=== PATIENT | female | born 1945 | race Caucasian/White ===

== ENCOUNTER → 2017-04-11 | Outpatient (CLI) | payer MEDICARE ==
--- NOTE | 2017-04-14 06:47 | MM ---
Reason for exam: additional evaluation requested from prior study. Last mammogram was performed 6 months ago. History: Patient is postmenopausal. Family history of premenopausal breast cancer in sister at age 35 and premenopausal breast cancer in daughter at age 47. 4 excisional biopsies of the right breast. Physical Findings: Nurse did not find any significant physical abnormalities on exam. MG 3D Diag Mammo W/Cad JOB Bilateral CC and MLO view(s) were taken. LM, spot compression CC, and spot compression MLO view(s) were taken of the left breast. Prior study comparison: September 26, 2016, bilateral MG 3d work up w/cad JOB. September 20, 2016, bilateral MG 3d screening mammo w/cad. Finding: There is an equal density (isodense), indistinct round mass in the upper outer quadrant, posterior position of the left breast which compresses normally, probably benign. New finding since September 26, 2016 and September 20, 2016. These results were verbally communicated with the patient and result sheet given to the patient on 04/11/17. ASSESSMENT: Probably benign, BI-RAD 3 RECOMMENDATION: Follow-up diagnostic mammogram of the left breast in 6 months.
== END | disposition home or self-care (01) ==
LOC: RADMAMWWP 13:50
PROVIDERS: ATTEND Internal Medicine Geriatric Medicine
DX: R92.2 Inconclusive mammogram (principal)
CPT/HCPCS: G0204; G0279

== ENCOUNTER → 2017-11-04 | Outpatient (CLI) | payer MEDICARE ==
--- NOTE | 2017-11-05 07:14 | MM ---
Reason for exam: follow-up at short interval from prior study. Last mammogram was performed 7 months ago. History: Patient is postmenopausal. Family history of premenopausal breast cancer in sister at age 35 and premenopausal breast cancer in daughter at age 47. 4 excisional biopsies of the right breast. Physical Findings: Nurse did not find any significant physical abnormalities on exam. MG 3D Diag Mammo W/Cad LT CC, MLO, and XCCL view(s) were taken of the left breast. Prior study comparison: April 11, 2017, bilateral MG 3d diag mammo w/cad JOB. September 26, 2016, bilateral MG 3d work up w/cad JOB. The breast tissue is heterogeneously dense. This may lower the sensitivity of mammography. Benign calcifications in the left breast. No significant new findings when compared with previous films. These results were verbally communicated with the patient and result sheet given to the patient on 11/04/17. ASSESSMENT: Benign, BI-RAD 2 RECOMMENDATION: Routine screening mammogram of both breasts in 6 months. Back on schedule for March 2018.
--- NOTE | 2017-11-05 13:07 | BD ---
EXAMINATION TYPE: MG DEXA axial skeleton. DATE OF EXAM: 11/04/2017 COMPARISON: NONE CLINICAL HISTORY: age related osteoporosis Height: 5'2 Weight: 177 FRAX RISK QUESTIONS: Alcohol (3 or more units per day): no Family History (Parent hip fracture): no Glucocorticoids (More than 3mos): no (Ex: prednisone, prednisolone, methylprednisolone, dexamethasone, and hydrocortisone). History of Fracture in Adulthood: no Secondary Osteoporosis: 1. Type 1 Diabetes: no 2. Hyperthyroidism: no 3. Menopause before 45: yes 4. Malnutrition: no 5. Chronic liver disease: no Rheumatoid Arthritis: no Current Tobacco Use: no RISK FACTORS HISTORY OF: Postmenopausal woman: MEDICATIONS: Additional Medications: high blood pressure, baby aspirin Additional History: EXAM MEASUREMENTS: Bone mineral densitometry was performed using the [employer] System. Bone mineral density as measured about the Lumbar spine is: ----- L1-L4(G/cm2): 1.211 T Score Values are as follows: ----- L2: 0.2 ----- L3: 0.4 ----- L4: -0.5 ----- L1-L4: 0.3 Bone mineral density about the R hip (g/cm2): 0.875 Bone mineral density about the L hip (g/cm2): 0.922 T Score values are as follows: -----R Neck: -1.2 -----L Neck: -0.8 -----R Total: 0.5 -----L Total: 1.0 IMPRESSION: No evidence for osteoporosis or osteopenia. NOTE: T-SCORE=SD OF THE YOUNG ADULT MEAN.
== END ==
LOC: RADBDWWP 15:04
PROVIDERS: ATTEND Internal Medicine Geriatric Medicine
DX: R92.8 Other abnormal and inconclusive findings on diagnostic imaging of breast (principal); M81.0 Age-related osteoporosis without current pathological fracture
CPT/HCPCS: 77080; 77065; G0279

== ENCOUNTER → 2018-07-08 | Outpatient (CLI) | payer MEDICARE ==
--- NOTE | 2018-07-08 12:28 | MM ---
Reason for exam: additional evaluation requested from prior study. Last mammogram was performed 8 months ago. History: Patient is postmenopausal. Family history of premenopausal breast cancer in sister at age 35 and premenopausal breast cancer in daughter at age 47. 4 excisional biopsies of the right breast. Physical Findings: Nurse did not find any significant physical abnormalities on exam. MG 3D Diag Mammo W/Cad JOB Bilateral CC and MLO view(s) were taken. Prior study comparison: November 04, 2017, left breast MG 3d diag mammo w/cad LT. April 11, 2017, bilateral MG 3d diag mammo w/cad JOB. The breast tissue is heterogeneously dense. This may lower the sensitivity of mammography. The previously questioned superior posterior asymmetric density on the left noted on 04/01/17 is no longer identified compatible with summation shadow. These results were verbally communicated with the patient and result sheet given to the patient on 07/08/18. ASSESSMENT: Negative, BI-RAD 1 RECOMMENDATION: Routine screening mammogram of both breasts in 1 year.
== END | disposition home or self-care (01) ==
LOC: RADMAMWWP 09:34
PROVIDERS: ATTEND Internal Medicine Geriatric Medicine
DX: R92.2 Inconclusive mammogram (principal)
CPT/HCPCS: 77066; G0279; 77062

== ENCOUNTER → 2019-08-27 | Outpatient (CLI) | payer MEDICARE ==
--- NOTE | 2019-08-27 15:03 | MM ---
Reason for exam: additional evaluation requested from prior study. Last mammogram was performed 1 year and 2 months ago. History: Patient is postmenopausal. Family history of premenopausal breast cancer in sister at age 35 and premenopausal breast cancer in daughter at age 47. 4 excisional biopsies of the right breast. Physical Findings: Nurse did not find any significant physical abnormalities on exam. MG 3D Diag Mammo W/Cad JOB Bilateral CC, MLO, and XCCL view(s) were taken. Prior study comparison: July 08, 2018, bilateral MG 3d diag mammo w/cad JOB. November 04, 2017, left breast MG 3d diag mammo w/cad LT. The breast tissue is heterogeneously dense. This may lower the sensitivity of mammography. No suspicious abnormality. No significant new findings when compared with previous films. These results were verbally communicated with the patient and result sheet given to the patient on 08/27/19. ASSESSMENT: Negative, BI-RAD 1 RECOMMENDATION: Routine screening mammogram of both breasts in 1 year.
== END | disposition home or self-care (01) ==
LOC: RADMAMWWP 12:55
PROVIDERS: ATTEND Internal Medicine Geriatric Medicine
DX: R92.2 Inconclusive mammogram (principal)
CPT/HCPCS: 77066; G0279; 77062

== ENCOUNTER 2020-07-28 14:00 | Emergency (ER) | payer MEDICARE ==
[2020-07-28 14:13] VITALS: RESP 18; TEMP 98.3
[2020-07-28] MEDS ORDERED: DIPH,PERTUS(ACELL)TETVAC-LF 0.5 ML VIAL IM ONE (14:41)
--- NOTE | 2020-07-28 15:05 | XR ---
EXAMINATION TYPE: XR wrist complete LT DATE OF EXAM: 07/28/2020 CLINICAL HISTORY: pain TECHNIQUE: Frontal, lateral and oblique images of the left wrist are obtained. COMPARISON: None. FINDINGS: There is no acute fracture/dislocation evident. The joint spaces appear within normal jason its. The overlying soft tissue appears unremarkable. IMPRESSION: There is no acute fracture or dislocation seen. ICD 10 NO FRACTURE, INITIAL EVALUATION
--- NOTE | 2020-07-28 15:06 | XR ---
EXAMINATION TYPE: XR hand complete LT DATE OF EXAM: 07/28/2020 CLINICAL HISTORY: pain TECHNIQUE: Frontal, lateral and oblique images of the left hand are obtained. COMPARISON: None. FINDINGS: There is cortical irregularity involving the third and fourth subungual cheri. Correlate cl inically for virtually nondisplaced fractures. Remaining osseous structures are intact and unremarkab le. The joint spaces appear within normal limits. The overlying soft tissue appears unremarkable. IMPRESSION: There is cortical irregularity involving the third and fourth subungual cheri. Correlate clinically f or virtually nondisplaced fractures.
--- NOTE | 2020-07-28 15:12 | XR ---
EXAMINATION TYPE: XR knee complete bilateral DATE OF EXAM: 07/28/2020 CLINICAL HISTORY: pain TECHNIQUE: Three views of the right and left knee are obtained. COMPARISON: None. FINDINGS: There is no acute fracture/dislocation. The tri-compartment joint spaces appear mildly to moderately narrowed. The overlying soft tissue appears unremarkable. IMPRESSION: There is no acute fracture or dislocation.ICD 10 NO FRACTURE, INITIAL EVALUATION
--- NOTE | 2020-07-28 15:22 | ED ---
General Adult HPI - General Chief complaint: Fall Stated complaint: Fall - Head/Knee Injury Time Seen by Provider: 07/28/20 14:18 Source: patient, RN notes reviewed Mode of arrival: ambulatory Limitations: no limitations - History of Present Illness Initial comments: 74-year-old female presents to the emergency department for a chief complaint of fall. Patient reports yesterday she was walking on the sidewalk when she tripped over an elevated part. Patient fell on her left arm and bilateral knees. Patient reports she has been ambulating but still has mild bilateral knee pain. States she has some mild pain in her hand as well. She did not hit her head or lose consciousness. She does not take blood. She did cut the inside of her upper lip during the fall. Denies any tooth injuries.Patient has no other complaints at this time including shortness of breath, chest pain, abdominal pain, nausea or vomiting, headache, or visual changes. - Related Data Allergies Allergy/AdvReac Type Severity Reaction Status Date / Time Penicillins Allergy Unknown Verified 07/28/20 14:08 Review of Systems ROS Statement: Those systems with pertinent positive or pertinent negative responses have been documented in the HPI. ROS Other: All systems not noted in ROS Statement are negative. Past Medical History Past Medical History: Hypertension History of Any Multi-Drug Resistant Organisms: None Reported Past Surgical History: Breast Surgery, Hysterectomy Past Psychological History: No Psychological Hx Reported Smoking Status: Current every day smoker Past Alcohol Use History: Occasional Past Drug Use History: None Reported General Exam - General Exam Comments Initial Comments: Left upper ext: patient has full range motion of the left wrist in all digits of the left hand. She has minimal tenderness noted of the fifth metacarpal bowl. Minimal tenderness noted to the dorsum of the left wrist. No significant edema. Radial pulse 2+. Patient does have abrasion noted to the bilateral palms measuring about 1 cm x 1 cm each. No evidence of trauma in the right upper extremity. Left knee: No evidence of trauma. Patient has full range of motion, DP pulse 2+ in the left lower extremity Right knee: Patient has minimal edema noted to the anterior right knee with small abrasion. Full range motion of the right knee. DP pulse 2+ in the right lower extremity. Limitations: no limitations General appearance: alert, in no apparent distress Head exam: Present: atraumatic, normocephalic, normal inspection Eye exam: Present: normal appearance, PERRL, EOMI. Absent: scleral icterus, conjunctival injection, periorbital swelling ENT exam: Present: normal external ear exam. Absent: normal oropharynx (Patient has a superficial abrasion noted of the inner upper lip. No gaping laceration, no lacerations requiring sutures. Teeth are intact.) Neck exam: Present: normal inspection, full ROM. Absent: tenderness, meningismus, lymphadenopathy Respiratory exam: Present: normal lung sounds bilaterally. Absent: respiratory distress, wheezes, rales, rhonchi, stridor Cardiovascular Exam: Present: regular rate, normal rhythm, normal heart sounds. Absent: systolic murmur, diastolic murmur, rubs, gallop, clicks GI/Abdominal exam: Present: soft, normal bowel sounds. Absent: distended, tenderness, guarding, rebound, rigid Back exam: Absent: vertebral tenderness Course Vital Signs 07/28/20 14:09 Temperature 98.3 F Pulse Rate 75 Respiratory 18 Rate Blood Pressure 171/90 O2 Sat by Pulse 98 Oximetry Medical Decision Making - Medical Decision Making Vitals are stable. Physical exam as documented. X-ray of the left hand shows cortical irregularity involving the third and fourth subungual talks. Correlate clinically. Patient does not have any tenderness in this area. Wrist x-ray shows no acute fracture or dislocation x-ray of the bilateral knees shows no acute fracture or dislocation. Patient is ambulatory. Neurovascular status intact in all extremities. She denies any neck or back pain. She did not hit her head. Patient can be discharged to follow-up with primary care. She can return here for any worsening symptoms. Disposition Clinical Impression: Fall, Contusion Disposition: HOME SELF-CARE Condition: Good Instructions (If sedation given, give patient instructions): Contusion in Adults (ED) Additional Instructions: Please take Motrin and Tylenol for pain. Please follow-up with your doctor in one to 2 days. Return to the emergency room if you've any worsening symptoms. If you have continued pain you could benefit from further imaging studies. Is patient prescribed a controlled substance at d/c from ED?: No Referrals: Hipolito Houston MD [Primary Care Provider] - 1-2 days Time of Disposition: 15:52
[2020-07-28 16:09] VITALS: BP 168/87; PULSE 64
== END 2020-07-28 16:08 | disposition home or self-care (01) ==
LOC: EC 14:00
DX: S80.211A Abrasion, right knee, initial encounter (principal); S60.512A Abrasion of left hand, initial encounter; S60.511A Abrasion of right hand, initial encounter; S00.511A Abrasion of lip, initial encounter; F17.200 Nicotine dependence, unspecified, uncomplicated; Z23 Encounter for immunization; Z88.0 Allergy status to penicillin; W01.0XXA Fall on same level from slipping, tripping and stumbling without subsequent striking against object, initial encounter; Y93.01 Activity, walking, marching and hiking; Y92.89 Other specified places as the place of occurrence of the external cause
CPT/HCPCS: 90471; 90715; 99283

== ENCOUNTER → 2022-11-28 | Outpatient (CLI) | payer MEDICARE ==
--- NOTE | 2022-11-28 11:33 | MM ---
Reason for Exam: Screening (asymptomatic). Last mammogram was performed 3 year(s) and 3 month(s) ago. Patient History: Menarche at age 12. First Full-Term at age 16. Hysterectomy at age 32. Postmenopausal. Excisional Biopsy on the Right side. Excisional Biopsy on the Right side. Excisional Biopsy on the Right side. Excisional Biopsy on the Right side. Sister had breast cancer, age 35. Daughter had breast cancer, age 47. Risk Values: Amrita 5 year model risk: 12.1%. NCI Lifetime model risk: 21.7%. Prior Study Comparison: 11/04/2017 Left Diagnostic Mammogram, [facility]. 07/08/2018 Bilateral Diagnostic Mammogram, [facility]. 08/27/2019 Bilateral Diagnostic Mammogram, [facility]. Tissue Density: The breast tissue is heterogeneously dense. This may lower the sensitivity of mammography. Findings: Analyzed By CAD. Stable distortion anterior upper aspect right breast. Stable asymmetric prominent tissue upper outer aspect left breast posteriorly. Occasional tiny benign-appearing linear calcification in the left breast is present. There is no suspicious new group of microcalcifications or new suspicious mass in either breast. Overall Assessment: Benign, BI-RAD 2 Management: Screening Mammogram of both breasts in 1 year. A clinical breast exam by your physician is recommended on an annual basis and results should be correlated with mammographic findings. Electronically signed and approved by: Tino Michelle M.D.
--- NOTE | 2022-11-28 11:50 | BD ---
EXAMINATION TYPE: Axial Bone Density DATE OF EXAM: 11/28/2022 COMPARISON: 11/04/2017 CLINICAL HISTORY: 77 years year old Female. ICD-10 CODE: M810 OSTEOPOROSIS Height: 62 Weight: 150.6 FRAX RISK QUESTIONS: Alcohol (3 or more units per day): NO Family History (Parent hip fracture): NO Glucocorticoids (More than 3mos): NO History of Fracture in Adulthood: NO Secondary Osteoporosis: 1. Type 1 Diabetes: NO 2. Hyperthyroidism: NO 3. Menopause before 45: NO 4. Malnutrition: NO 5. Chronic liver disease: NO Rheumatoid Arthritis: NO Current Tobacco Use: NO RISK FACTORS HISTORY OF: Hip Fracture (Right/Left): NO Spine Fracture: NO History of Wrist Fracture: LT ARM When: AGE 9 Surgery to Spine/Hip(right/left)/Wrist (right/left): NO Family History of Osteoporosis: MATERNAL GRANDMOTHER, MOTHER Active: YES Diet low in dairy products/other sources of calcium: NO Postmenopausal woman: YES Take estrogen and/or progesterone medications: NO Lost more than 2 inches in height since high school: NO Frequent falls: NO Poor Health: NO Hyperparathyroidism: NO Adrenal Insufficiency: NO MEDICATIONS: Prednisone or other steroids: NO Thyroid Medications:NO Osteoporosis Medications: NO Additional Medications: NONE EXAM MEASUREMENTS: Bone mineral densitometry was performed using the [employer]K System. Bone mineral density as measured about the Lumbar spine is: ----- L1-L4(G/cm2): 1.220 T Score Values are as follows: ----- L1: 0.2 ----- L2: -0.1 ----- L3: 0.8 ----- L4: 0.2 ----- L1-L4: 0.3 Bone mineral density has: INCREASED 3.2 % since study of: 11/04/2017 Bone mineral density about the R hip (g/cm2): 0.892 Bone mineral density about the L hip (g/cm2): 0.923 T Score values are as follows: -----R Neck: -1.1 -----L Neck: -0.8 -----R Total: 0.8 -----L Total: 0.9 Bone mineral density has: INCREASED 0.6 % since study of: 11/04/2017 FRAX%s: The graph provided illustrates a 4.8% chance for a major osteoporotic fx and a 0.8% chance fo r the hips probability for fx in 10 years time. IMPRESSION: Osteopenia (T Score between -2.5 and -1). There is slightly increased risk of fracture and the patient may be considered for treatment. Re-Screen 2-5 years. NOTE: T-SCORE=SD OF THE YOUNG ADULT MEAN.
== END | disposition home or self-care (01) ==
LOC: RADMAMWWP 11:01
PROVIDERS: ATTEND Internal Medicine Geriatric Medicine
DX: Z12.31 Encounter for screening mammogram for malignant neoplasm of breast (principal); M81.0 Age-related osteoporosis without current pathological fracture; M85.89 Other specified disorders of bone density and structure, multiple sites; Z78.0 Asymptomatic menopausal state; Z80.3 Family history of malignant neoplasm of breast
CPT/HCPCS: 77063; 77067; 77080